=== PATIENT | female | born 1940 | race Caucasian/White ===

== ENCOUNTER 2019-02-14 23:38 | Emergency (ER) | payer MEDICARE, OTHER ==
[2019-02-15] MEDS ORDERED: Acetaminophen 325 MG Tab PO ONE (00:27)
--- NOTE | 2019-02-15 00:51 | EDM.PDOC ---
ED HPI GENERAL MEDICAL PROBLEM - General Chief Complaint: Lower Extremity Injury/Pain Stated Complaint: [facility] Time Seen by Provider: 02/14/19 23:56 Source of Information: Reports: Patient, EMS, RN Notes Reviewed - History of Present Illness INITIAL COMMENTS - FREE TEXT/NARRATIVE: 78-year-old lady tripped and fell at the musical this evening injuring her right leg. Initially the pain was quite severe. She is not able to stand, bear weight or walk. Or for she has been brought here by the [facility] ambulance. Did give half milligram Dilaudid IV either prior or during transport. No other pain or injury. Treatments DIRECTOR OF CARDIOPULMONARY SERVICES: Reports: IV/IO Other Treatments DIRECTOR OF CARDIOPULMONARY SERVICES: 0.5 mg Dilaudid IVP Right Leg Pain Score (Numeric/FACES): 6 - Related Data Allergies Allergy/AdvReac Type Severity Reaction Status Date / Time acetaminophen [From Vicodin] Allergy Hallucinati Verified 02/14/19 23:45 ons hydrocodone [From Vicodin] Allergy Hallucinati Verified 02/14/19 23:45 ons Past Medical History HEENT History: Reports: Cataract, Impaired Vision, Macular Degeneration Other HEENT History: Wears glasses Cardiovascular History: Reports: High Cholesterol, Hypertension Endocrine/Metabolic History: Reports: Hyperthyroidism - Past Surgical History HEENT Surgical History: Reports: Cataract Surgery, Tonsillectomy GI Surgical History: Reports: Cholecystectomy Social & Family History - Tobacco Use Smoking Status *Q: Never Smoker - Recreational Drug Use Recreational Drug Use: No Review of Systems - Review of Systems Review Of Systems: See Below Eyes: Reports: No Symptoms Ears: Reports: No Symptoms Nose: Reports: No Symptoms Mouth/Throat: Reports: No Symptoms Respiratory: Denies: Shortness of Breath Cardiovascular: Denies: Chest Pain GI/Abdominal: Denies: Abdominal Pain Musculoskeletal: Reports: Other (He does have pain of the left mid and left upper lower leg). Denies: Joint Pain Neurological: Reports: Difficulty Walking. Denies: Headache, Trouble Speaking, Change in Speech ED EXAM, GENERAL - Physical Exam Exam: See Below General Appearance: Alert Head: Atraumatic Neck: Supple Respiratory/Chest: No Respiratory Distress, Lungs Clear Cardiovascular: Regular Rate, Rhythm Extremities: Leg Pain (There is some tenderness of the left mid and left proximal leg, no visible swelling or deformity). No: Joint Swelling (Knees ankles and hips are nontender, upper extremities nontender) Neurological: Alert, Oriented, No Motor/Sensory Deficits Skin Exam: Warm, Dry, Normal Color Course - Vital Signs Last Recorded V/S: Last Vital Signs Temp 97.4 F 02/14/19 23:45 Pulse 77 02/14/19 23:45 Resp 18 02/14/19 23:45 BP 158/82 H 02/14/19 23:45 Pulse Ox 96 02/14/19 23:45 - Orders/Labs/Meds Orders: Active Orders 24 hr Category Date Time Status Tibia Fibula Rt [CR] Stat Exams 02/15/19 00:04 Taken Meds: Medications Discontinued Medications Generic Name Dose Route Start Last Admin Trade Name Freq PRN Reason Stop Dose Admin Acetaminophen 975 mg 02/15/19 00:27 02/15/19 00:38 Tylenol PO 02/15/19 00:28 975 mg NOW ONE Administration - Re-Assessments/Exams Free Text/Narrative Re-Assessment/Exam: 02/15/19 01:34 X-rays of tib-fib are negative for fracture. We did Darian wrap her leg and given Tylenol. She is very concerned about ability to ambulate. We have found that she can ambulate with aid of an walker but not able to ambulate without the walker. I suspect this may be a lifetime need as she is likely barely getting along prior to this injury. They live at [facility] about 10 hours from here. will need to go home with her. Discharge instructions as documented. Departure - Departure Time of Disposition: 00:50 Disposition: Home, Self-Care 01 Condition: Fair Clinical Impression: Leg sprain, Difficulty walking Fall Qualifiers: Encounter type: initial encounter Qualified Code(s): W19.XXXA - Unspecified fall, initial encounter - Discharge Information Instructions: Muscle Strain, [id number] Referrals: PCP,Not In Area [Primary Care Provider] - Forms: ED Department Discharge Additional Instructions: Darian wrap left leg until pain resolving, rest and elevate leg is much as possible , you may continue Tylenol 2-3 times daily as needed. Walker for help with walking and balance. Follow-up with your regular medical provider when you get home in about one week for recheck. - My Orders Last 24 Hours: My Active Orders 02/15/19 00:04 Tibia Fibula Rt [CR] Stat - Assessment/Plan Last 24 Hours: My Active Orders 02/15/19 00:04 Tibia Fibula Rt [CR] Stat
--- NOTE | 2019-02-15 11:16 | CR ---
Right tibia and fibula: AP and lateral views of the right tibia and fibula were obtained. Comparison: No prior study. Degenerative change noted within the knee. There is abnormal appearance of the lateral tibial plateau suspicious for tibial plateau fracture. Osteopenia is seen. No additional fracture or other bony abnormality is identified. Impression: 1. Lateral tibial plateau fracture is suspected. 2. Osteopenia. Other incidental findings. Diagnostic code #3
== END 2019-02-15 01:02 | disposition home or self-care (01) ==
LOC: JD.ED 23:38
DX: T14.8XXA Other injury of unspecified body region, initial encounter (principal); R26.2 Difficulty in walking, not elsewhere classified; E78.00 Pure hypercholesterolemia, unspecified; I10 Essential (primary) hypertension; Z88.8 Allergy status to other drugs, medicaments and biological substances; Z88.5 Allergy status to narcotic agent
CPT/HCPCS: 73590; 99283; A9270